=== PATIENT | female | born 1940 | race Caucasian/White ===

== ENCOUNTER 2018-02-06 13:12 | Day surgery (SDC) | payer MEDICARE ==
[2008-11-24 08:25] VITALS: BP 138/60
[2018-02-06] VITALS (7 sets, daily range): BP systolic 138–154; BP diastolic 70–82; PULSE 65–82; TEMP 97.8
[~2018-02-06] VITALS: Ht 160 cm; Wt 73.5 kg
[~2018-02-06 13:12] MED LIST: ALDACTONE50 MG PO; BACTRIM DS 8001 TAB PO; CRESTOR10 MG PO; ENABLEX PO; LASIX 40MG TABL40 MG PO; MEDROXYPROGESTERONE; PREMARIN 0.60.625 MG PO; ZEBETA 5MG5 MG PO
[2018-02-06] MEDS ORDERED: ALLEGRA 180MG180 MG PO (14:34)
[2018-02-06] MEDS ORDERED: LIPITOR 40MG TA40 MG PO (14:36)
[2018-02-06] MEDS ORDERED: ASPIRIN 81M81 MG/TA2 PO (14:36)
[2018-02-06] MEDS ORDERED: CULTURELLE CAP1 EAC1 PO (14:37)
[2018-02-06] MEDS ORDERED: VITAMIN D 1001000 IU PO (14:37)
[2018-02-06] MEDS ORDERED: BACTRIM DS 8001 TAB PO (14:37)
[2018-02-06] MEDS ORDERED: ESTRACE0.5 MG PO (14:38)
[2018-02-06] MEDS ORDERED: HYDROCORTISONE30 G3 TP (14:39)
[2018-02-06] MEDS ORDERED: NIZORAL SHAMPO120 M1 TP (14:39)
[2018-02-06] MEDS ORDERED: MILK OF MA400 MG/52 PO (14:40)
[2018-02-06] MEDS ORDERED: PROVERA 2.5MG2.5 MG PO (14:40)
[2018-02-06] MEDS ORDERED: MIRALAX PA17 GM/Dose PO (14:41)
[2018-02-06] MEDS ORDERED: PRESERVISION1 SGL PO (14:42)
[2018-02-06] MEDS ORDERED: OMEGA-3 FISH1000 MG PO (14:42)
[2018-02-06] MEDS ORDERED: ALDACTONE 25MG25 M1 PO (14:43)
[2018-02-06] MEDS ORDERED: SINEMET 25/101 UDTAB PO (14:43)
[2018-02-06] MEDS ORDERED: TINACTIN11 TP (14:48)
[2018-02-06] MEDS ORDERED: TYLENOL 8 HR PO (14:49)
[2018-02-06] MEDS ORDERED: B-12 500 MCG PO (14:49)
[2018-02-07] VITALS: BP 141/72; PULSE 88; TEMP 98
[2018-02-07 04:00] VITALS: BP 131/69; PULSE 77; TEMP 97.9
[2018-02-07 07:19] VITALS: BP 148/73; PULSE 88; TEMP 98.4
[2018-02-07 11:10] VITALS: BP 138/69; PULSE 73; TEMP 97.5
[2018-02-07 15:42] VITALS: BP 142/81; PULSE 72; TEMP 98
== END 2018-02-07 17:22 | disposition home health service (06) ==
LOC: SDCO 13:12 → SURG 18:25 → SDCO 02-07 17:22
DX: K40.30 Unilateral inguinal hernia, with obstruction, without gangrene, not specified as recurrent (principal); I10 Essential (primary) hypertension; G89.29 Other chronic pain; M54.9 Dorsalgia, unspecified; Z90.5 Acquired absence of kidney; Z96.652 Presence of left artificial knee joint; I73.9 Peripheral vascular disease, unspecified
CPT/HCPCS: OP; C1781; J0690; J1100; J1885; J2405; J2704; J3010; J7030; J7120